=== PATIENT | female | born 1970 | race Caucasian/White ===

== ENCOUNTER 2018-03-31 19:14 | Inpatient (IN) | payer OTHER ==
[~2018-03-31] VITALS: Ht 162.6 cm; Wt 80.3 kg
[2018-03-31 19:24] VITALS: BP 167/108
[2018-03-31] MEDS ORDERED: LORazepam 0.5 MG TAB PO ONE (20:00)
[2018-03-31 20:40] LABS: BASOPHILS % (AUTO) 0.6 % (0.0-2.0); EOSINOPHILS # (AUTO) 0.1 K/uL (0-0.4); EOSINOPHILS % (AUTO) 1.8 % (0.0-4.0); HEMATOCRIT 37.6 % (36-48); HEMOGLOBIN 12.4 g/dL (12.0-16.0); LYMPHOCYTES % (AUTO) 28.7 % (20.5-51.1); MEAN CORPUSCULAR HEMOGLOBIN 30 pg (27-31); MEAN CORPUSCULAR HGB CONC 33 g/dL (33-37); MEAN CORPUSCULAR VOLUME 91.8 fL (80-94); MONOCYTES # (AUTO) 0.8 K/uL (0.8-1.0); MONOCYTES % (AUTO) 11.6 % (1.7-9.3); NEUTROPHILS # (AUTO) 3.9 K/uL (1.8-7.7); NEUTROPHILS % (AUTO) 57.3 % (42.2-75.2); PLATELET COUNT (AUTO) 240 K/uL (140-450); RED CELL DISTRIBUTION WIDTH 13.7 % (11.6-13.7); WHITE BLOOD COUNT (AUTO) 6.9 K/uL (4.8-10.8)
[2018-03-31 20:54] LABS: ALBUMIN 4.1 g/dL (3.4-5.0); ANION GAP 12.8 (8-16); CARBON DIOXIDE 27.3 mmol/L (21-32); CREATININE 0.8 mg/dL (0.6-1.3); POTASSIUM 5.1 mmol/L (3.5-5.1); TOTAL BILIRUBIN 0.2 mg/dL (0.0-1.0)
[2018-03-31 20:57] LABS: PROTHROMBIN TIME 9.8 secs (10.8-13.4)
[2018-03-31 21:11] LABS: BARBITURATE, URINE NEG. ng/ml (NEG <=200); BENZODIAZEPINE, URINE NEG. ng/mL (NEG <=200); CANNABINOID, URINE NEG. ng/mL (NEG <=50); COCAINE, URINE NEG. ng/mL (NEG <=300); OPIATE, URINE NEG. ng/mL (NEG <=2000); PHENCYCLIDINE SCREEN,URINE NEG. ng/mL (NEG <=25)
[2018-03-31] MEDS ORDERED: ASPIRIN 325 MG TAB PO ONE (23:00)
[2018-03-31] MEDS ORDERED: [UNRECOGNIZED DRUG - CODE] PO (23:07)
[2018-03-31] MEDS ORDERED: LORA10TA19 PO (23:07)
[2018-03-31] MEDS ORDERED: LACT1CAP65 PO (23:07)
[2018-03-31] MEDS ORDERED: VITD1000 PO (23:07)
[2018-03-31] MEDS ORDERED: KETOROLAC 30 MG/ML VIAL IVP ONE (23:50)
[2018-03-31] MEDS ORDERED: ASPIRIN 81 MG TAB.CHEW PO ONE (23:50)
[2018-03-31] MEDS ORDERED: MORPHINE SULFATE 4 MG/ML SYR IVP PRN (23:50)
[2018-03-31] MEDS ORDERED: NITROGLYCERIN 0.4 MG TAB SL ONE (23:50)
[2018-04-01 00:50] VITALS: BP 131/76
[2018-04-01 04:00] VITALS: BP 98/57
[2018-04-01 06:56] LABS: BASOPHILS % (AUTO) 0.5 % (0.0-2.0); EOSINOPHILS # (AUTO) 0.1 K/uL (0-0.4); EOSINOPHILS % (AUTO) 2.4 % (0.0-4.0); HEMATOCRIT 33.9 % (36-48); HEMOGLOBIN 11.3 g/dL (12.0-16.0); LYMPHOCYTES # (AUTO) 2.2 K/uL (2.5-16.5); LYMPHOCYTES % (AUTO) 37.3 % (20.5-51.1); MEAN CORPUSCULAR HEMOGLOBIN 31 pg (27-31); MEAN CORPUSCULAR HGB CONC 33 g/dL (33-37); MEAN CORPUSCULAR VOLUME 91.9 fL (80-94); MONOCYTES # (AUTO) 0.7 K/uL (0.8-1.0); MONOCYTES % (AUTO) 11.6 % (1.7-9.3); NEUTROPHILS # (AUTO) 2.9 K/uL (1.8-7.7); NEUTROPHILS % (AUTO) 48.2 % (42.2-75.2); PLATELET COUNT (AUTO) 209 K/uL (140-450); RED BLOOD CELL COUNT(AUTO) 3.69 MIL/uL (4.20-5.40)
[2018-04-01 07:43] LABS: ALBUMIN 3.4 g/dL (3.4-5.0); ANION GAP 11.1 (8-16); CARBON DIOXIDE 26.5 mmol/L (21-32); CREATININE 0.7 mg/dL (0.6-1.3); POTASSIUM 4.6 mmol/L (3.5-5.1); TOTAL BILIRUBIN 0.3 mg/dL (0.0-1.0)
[2018-04-01 08:00] VITALS: BP 116/65
[2018-04-01 11:48] VITALS: BP 101/54
[2018-04-01 16:00] VITALS: BP 109/58
[2018-04-01 20:00] VITALS: BP 127/61
[2018-04-02] VITALS: BP 92/48
[2018-04-02 04:00] VITALS: BP 94/47
[2018-04-02 08:00] VITALS: BP 114/61
[2018-04-02 12:00] VITALS: BP 107/68
[2018-04-02 16:00] VITALS: BP 107/53
[2018-04-02 20:00] VITALS: BP 100/57
[2018-04-03 01:25] VITALS: BP 110/50
[2018-04-03 04:00] VITALS: BP 97/46
[2018-04-03 08:00] VITALS: BP 99/51
[2018-04-03] MEDS ORDERED: REGADENOSON 0.4 MG/5 ML SYR IV SCH (08:00)
[2018-04-03 12:00] VITALS: BP 108/62
[2018-04-03] MEDS ORDERED: ACETAMINOPHEN 325 MG TAB PO PRN (15:40)
[2018-04-03 16:00] VITALS: BP 105/51
[2018-04-03 20:01] VITALS: BP 127/71
[2018-04-04] VITALS: BP 107/59
[2018-04-04 04:00] VITALS: BP 105/56
[2018-04-04 08:00] VITALS: BP 95/56
[2018-04-04] MEDS ORDERED: NITROGLYCERIN 0.4 MG TAB SL PRN (09:45)
[2018-04-04] MEDS ORDERED: ASPIRIN 81 MG TAB.CHEW PO SCH (10:00)
[2018-04-04] MEDS ORDERED: ATORVASTATIN 20 MG TAB PO SCH (10:00)
[2018-04-05] MEDS ORDERED: ATORVASTATIN 20 MG TAB PO SCH (09:00)
[2018-04-05] MEDS ORDERED: ASPIRIN 81 MG TAB.CHEW PO SCH (09:00)
== END 2018-04-04 11:30 | disposition short-term general hospital (02) | DRG 198 ==
LOC: MED 19:14 → MTU 04-01 00:20
PROVIDERS: ADMIT Hospitalist; ATTEND Hospitalist
DX: I25.10 Atherosclerotic heart disease of native coronary artery without angina pectoris (principal); I51.0 Cardiac septal defect, acquired; I16.0 Hypertensive urgency; F41.9 Anxiety disorder, unspecified; G43.909 Migraine, unspecified, not intractable, without status migrainosus; I10 Essential (primary) hypertension
CPT/HCPCS: 36415; 70450; 71045; 80053; 80305; 83880; 84484; 85025; 85610; 85730; 87081; 93005; 93017; 99285; A9500; A9502; J2785